=== PATIENT | male | born 1970 | race African-American/Black ===

== ENCOUNTER 2019-03-11 16:51 | Emergency (ER) | payer SELFPAY ==
--- NOTE | 2019-03-11 18:11 | RAD ---
RIGHT SHOULDER THREE VIEWS: HISTORY: Right shoulder pain after a fall. FINDINGS: There is a displaced fracture involving the proximal right humerus. The distal fracture fragment is m ildly impacted and slightly displaced medially by approximately 6 mm. There is mild apex lateral angu lation of the fracture fragments. Minimal adjacent increased density is seen, which could be related to callus type formation. There is mild elevation of the distal right clavicle in relation to the acr omion, which may be related to grade 2 acromioclavicular joint separation. The coracoclavicular dista nce is within normal limits. There is dislocation seen. IMPRESSION: 1. Mildly angulated and displaced fracture involving the proximal right humerus with areas of irregul ar increased density which may be related to callus formation. 2. Suggestion of minimal right acromioclavicular joint separation. POS: OFF
--- NOTE | 2019-03-11 18:14 | RAD ---
RIGHT HUMERUS TWO VIEWS: HISTORY: Right upper extremity pain after a fall. FINDINGS: There is a mildly fracture involving the proximal right humeral diaphysis, near the neck of the humerus, with distal fracture fragment displaced anteriorly and slightly medially with respect t o the patient proximal fracture fragment. There is also mild apex lateral angulation of fracture frag ments. Increased density is seen adjacent to the fracture site, which may be related to mild callus f ormation. The distal right clavicle appears to be slightly elevated, which may be related to grade 2 acromioclavicular joint separation. The coracoclavicular distance appears to be within normal limits. IMPRESSION: 1. , displaced and mildly angulated fracture involving the proximal right humerus with adjac ent minimal callus formation. 2. Probable mild right acromioclavicular joint separation. POS: OFF
== END 2019-03-11 19:44 | disposition home or self-care (01) ==
LOC: ERS 16:51
DX: S42.201A Unspecified fracture of upper end of right humerus, initial encounter for closed fracture (principal); F17.210 Nicotine dependence, cigarettes, uncomplicated; W07.XXXA Fall from chair, initial encounter

== ENCOUNTER 2021-08-24 00:50 | Emergency (ER) | payer OTHER, SELFPAY ==
[2021-08-24] MEDS ORDERED: Xylocaine 1% w/ Epi 1:100K 10 ML VIAL ONE (02:27)
[2021-08-24] MEDS ORDERED: Boostrix 0.5 ML (Tdap) VIAL ONE (02:57)
[2021-08-24] MEDS ORDERED: Triple Antibiotic Oint 1 GM Packet ONE (03:15)
== END 2021-08-24 03:21 | disposition home or self-care (01) ==
LOC: ERS 00:50
DX: S01.81XA Laceration without foreign body of other part of head, initial encounter (principal); F17.210 Nicotine dependence, cigarettes, uncomplicated; Y04.2XXA Assault by strike against or bumped into by another person, initial encounter; Z23 Encounter for immunization
CPT/HCPCS: 12013; 70450; 72125; 90471; 90715

== ENCOUNTER 2021-09-14 14:02 | Emergency (ER) | payer SELFPAY | END 2021-09-14 14:31 | disposition home or self-care (01) | LOC: ERS 14:02 | DX: S01.81XD Laceration without foreign body of other part of head, subsequent encounter (principal); F17.210 Nicotine dependence, cigarettes, uncomplicated ==

== ENCOUNTER 2022-03-05 01:16 | Inpatient (IN) | payer BC, SELFPAY ==
[2022-03-05 03:11] LABS: #Basophils 0.1 thou/uL (0.0-0.2); #Eosinphils 0.1 thou/uL (0.0-0.7); #Lymphocytes 2.8 thou/uL (1.20-3.40); #Monocytes 0.9 thou/uL (0.11-0.59); #Neutrophils 5.9 thou/uL (1.40-6.50); %Basophils 0.8 % (0.0-1.0); %Eosinophils 0.9 % (0.0-10.0); %Lymphocytes 28.2 % (21.0-51.0); %Monocytes 9.6 % (0.0-10.0); %Neutrophils 60.5 % (42.0-75.0); Hemoglobin 15.2 g/dL (14.0-18.0); Mean Corpuscular HGB CONC 33.1 g/dL (32.0-36.0); Mean Corpuscular Hemoglobin 34.3 pg (27.0-31.0); Mean Platelet Volume 7.4 fL (7.4-10.4); Platelet Count 208 10x3/uL (130-400); RBC Distribution Width 11.7 % (11.5-14.5); Red Blood Cell (RBC) Count 4.43 mill/uL (4.70-6.10); White Blood Cell (WBC) Count 9.8 10x3/uL (4.8-10.8)
[2022-03-05] MEDS ORDERED: Lidocaine 1% MPF 2 ML VIAL ONE (03:20)
[2022-03-05 03:31] LABS: Magnesium 1.7 mg/dL (1.6-2.6)
[2022-03-05 03:33] LABS: ALT (SGPT) 39 U/L (8-55); AST (SGOT) 48 U/L (5-34); Acetaminophen Less than 10.0 mcg/mL (10.0-30.0); Alcohol 173 mg/dL (Less than 10); Alkaline Phosphatase 161 U/L (40-110); Anion Gap 16 mmol/L (10-20); BUN (Urea Nitrogen) 10 mg/dL (8.4-25.7); Bilirubin, Total 0.3 mg/dL (0.2-1.2); Calc. Creatinine Clearance 0 mL/min (70-130); Calcium 9.6 mg/dL (7.8-10.44); Carbon Dioxide 27 mmol/L (22-29); Chloride 99 mmol/L (98-107); Estimated GFR 96; Globulin 5.4 g/dL (2.4-3.5); Glucose 87 mg/dL (70-105); Potassium 3.3 mmol/L (3.5-5.1); Protein, Total 9.4 g/dL (6.0-8.3); Salicylate Less than 8.0 mg/dL (15.0-30.0); Sodium 139 mmol/L (136-145)
[2022-03-05] MEDS ORDERED: cloNIDine 0.1 MG TAB ONE (05:13)
[2022-03-05] MEDS ORDERED: Potassium Chloride 20 MEQ TAB ONE (05:13)
[2022-03-05] MEDS ORDERED: Multivitamins, Adult 10 ML, Thiamine HCl 100 MG, Folic Acid 1 MG in Dextrose 5 %-0.45 %... IV SCH (05:30)
[2022-03-05] MEDS ORDERED: Lorazepam 2 MG/ML VIAL ONE (06:32)
[2022-03-05 06:45] LABS: Amphetamine Not Detected (NotDetected); Barbiturates Screen Not Detected (NotDetected); Benzodiazepine Screen Not Detected (NotDetected); Cocaine Metabolite Screen Not Detected (NotDetected); Methadone Not Detected (NotDetected); Methamphetamine Not Detected (NotDetected); Opiate Screen Not Detected (NotDetected); Oxycodone Screen Not Detected (NotDetected); Phencyclidine (PCP) Detected (NotDetected); THC/Cannabinoid Screen Not Detected (NotDetected); Tricyclic Screen Not Detected (NotDetected)
[2022-03-05] MEDS ORDERED: Ondansetron ODT 4 MG TAB SL PRN (07:30)
[2022-03-05] MEDS ORDERED: Ondansetron PF 4 MG/2 ML Vial IVP PRN (07:30)
[2022-03-05 08:02] LABS: Troponin I Less than 0.010 ng/mL (< 0.028)
[2022-03-05 09:30] LABS: SARS-CoV-2 NAA Rapid Test Not Detected (NotDetected)
[2022-03-05] MEDS ORDERED: Electrolyte Replacement Protocol 1 EACH FS SCH (10:15)
[2022-03-05] MEDS ORDERED: Electrolyte Replacement Protocol FS PRN (10:45)
[2022-03-05] MEDS ORDERED: Ondansetron ODT 4 MG TAB PO PRN (10:49)
[2022-03-05] MEDS ORDERED: Lorazepam 1 MG TAB PO PRN (10:49)
[2022-03-05 10:55] LABS: Troponin I Less than 0.010 ng/mL (< 0.028)
[2022-03-05 11:22] LABS: Magnesium 1.4 mg/dL (1.6-2.6)
[2022-03-05 11:23] LABS: CK (CPK) 274 U/L (30-200)
[2022-03-05 11:28] LABS: Bacteria/HPF None Seen HPF (None Seen); Bilirubin Negative (Negative); Blood, Urine Negative (Negative); CAUTI Indications for Culture Alt mental st,lethar; Clarity Clear (Clear); Glucose, Urine (Dipstick) Normal (Negative); Ketone, Urine Negative (Negative); Leukocyte Negative Leu/uL (Negative); Nitrite Negative (Negative); Protein, Urine (Dipstick) 10 mg/dL (Neg-Trace); RBC/HPF 0-3 HPF (0-3); Specific Gravity, Urine 1.007 (1.002-1.036); Squamous Epithelial None Seen HPF (0-3); Urobilinogen Normal mg/dL (Less than 2); WBC/HPF 0-3 HPF (0-3)
[2022-03-05 11:51] LABS: Urine Culture Reflex No No
[2022-03-05] MEDS ORDERED: Acetaminophen 650 MG Suppository PR PRN (11:51)
[2022-03-05] MEDS ORDERED: Acetaminophen 325 MG TAB ONE (12:14)
[2022-03-05] MEDS ORDERED: Lorazepam 1 MG TAB ONE (12:14)
[2022-03-05] MEDS: Lorazepam 1 MG TAB PO SCH ×3 (12:17→21:31)
[2022-03-05] MEDS: Acetaminophen 325 MG TAB PO PRN (12:17)
[2022-03-05] MEDS: Thiamine HCl 200 MG/2 ML VIAL SLOW IVP SCH (12:19)
[2022-03-05] MEDS ORDERED: Magnesium Sulfate In Water 4 GM in Premix Bag 1 BAG IVPB SCH (13:00)
[2022-03-05 13:57] VITALS: BMI 19.4
[2022-03-05] MEDS: Carvedilol 25 MG TAB PO SCH (16:08)
[2022-03-05] MEDS: Doxycycline 100 MG CAP PO SCH (21:31)
[2022-03-05] MEDS ORDERED: cloNIDine 0.1 MG TAB PO PRN (23:56)
[2022-03-06] MEDS: Acetaminophen 325 MG TAB PO PRN (00:11)
[2022-03-06] MEDS: Lorazepam 1 MG TAB PO SCH (04:42)
[2022-03-06 06:21] LABS: Anion Gap 11 mmol/L (10-20); BUN (Urea Nitrogen) 8 mg/dL (8.4-25.7); Calc. Creatinine Clearance 68 mL/min (70-130); Calcium 9.1 mg/dL (7.8-10.44); Carbon Dioxide 25 mmol/L (22-29); Chloride 100 mmol/L (98-107); Estimated GFR 91; Glucose 119 mg/dL (70-105); Magnesium 1.9 mg/dL (1.6-2.6); Potassium 3.6 mmol/L (3.5-5.1); Sodium 132 mmol/L (136-145)
[2022-03-06 06:48] LABS: Band 2 % (5-11); Eosinophils 3 % (0-10); Hemoglobin 14.7 g/dL (14.0-18.0); Lymphocytes 43 % (21-51); MDiff Complete? YES; Mean Corpuscular HGB CONC 33.7 g/dL (32.0-36.0); Mean Platelet Volume 7.3 fL (7.4-10.4); Monocytes 8 % (0-10); Neutrophil 44 % (42-75); Platelet Count 184 10x3/uL (130-400); RBC Distribution Width 11.5 % (11.5-14.5); Red Blood Cell (RBC) Count 4.19 mill/uL (4.70-6.10); White Blood Cell (WBC) Count 8.6 10x3/uL (4.8-10.8)
[2022-03-06] MEDS ORDERED: Magnesium 2 GM/50 ML(in water) 2 GM in Premix Bag 1 BAG IVPB SCH (08:00)
[2022-03-06] MEDS: Doxycycline 100 MG CAP PO SCH (08:45)
[2022-03-06] MEDS: Carvedilol 25 MG TAB PO SCH (08:45)
[2022-03-06] MEDS: Multivitamin W/ Minerals 1 TAB PO SCH (08:45)
[2022-03-06] MEDS: Folic Acid 1 MG TAB PO SCH (08:46)
[2022-03-06] MEDS ORDERED: FLU VACC QS2022-23(6MOS UP)/PF 60 MCG/0.5 ML SYRINGE IM ONE (09:00)
[2022-03-06] MEDS ORDERED: Lorazepam 1 MG TAB PO PRN (10:49)
[2022-03-06] MEDS ORDERED: Lactated Ringer's 1,000 ML IV SCH (12:00)
[2022-03-06] MEDS: Thiamine HCl 200 MG/2 ML VIAL SLOW IVP SCH (12:23)
[2022-03-06] MEDS ORDERED: Piperacillin/Tazobactam 3.375 GM in Sodium Chloride 0.9% 100 ML IVPB SCH (13:30)
[2022-03-06] MEDS: Piperacillin/Tazobactam 3.375 GM in Sodium Chloride 0.9% 100 ML IVPB SCH (17:46)
[2022-03-06] MEDS: Heparin 5,000 UNITS/ML VIAL SC SCH (20:50)
[2022-03-06] MEDS: Cyanocobalamin (Vitamin B-12) 1,000 MCG TAB PO SCH (20:50)
[2022-03-06] MEDS ORDERED: Amoxicillin/Potassium Clav 875 MG TAB PO SCH (21:00)
[2022-03-07] MEDS: Piperacillin/Tazobactam 3.375 GM in Sodium Chloride 0.9% 100 ML IVPB SCH ×3 (02:03→17:01)
[2022-03-07 05:49] LABS: ALT (SGPT) 21 U/L (8-55); AST (SGOT) 24 U/L (5-34); Albumin 3.3 g/dL (3.5-5.0); Alkaline Phosphatase 107 U/L (40-110); Anion Gap 12 mmol/L (10-20); BUN (Urea Nitrogen) 7 mg/dL (8.4-25.7); Bilirubin, Total 0.8 mg/dL (0.2-1.2); Calc. Creatinine Clearance 72 mL/min (70-130); Carbon Dioxide 27 mmol/L (22-29); Chloride 99 mmol/L (98-107); Estimated GFR 98; Globulin 4.7 g/dL (2.4-3.5); Glucose 118 mg/dL (70-105); Magnesium 1.6 mg/dL (1.6-2.6); Potassium 3.5 mmol/L (3.5-5.1); Sodium 134 mmol/L (136-145)
[2022-03-07 06:02] LABS: Band 2 % (5-11); Eosinophils 1 % (0-10); Hemoglobin 13.9 g/dL (14.0-18.0); Lymphocytes 41 % (21-51); MDiff Complete? YES; Mean Corpuscular HGB CONC 33.7 g/dL (32.0-36.0); Mean Corpuscular Hemoglobin 34.7 pg (27.0-31.0); Mean Platelet Volume 7.3 fL (7.4-10.4); Monocytes 17 % (0-10); Neutrophil 39 % (42-75); Platelet Count 176 10x3/uL (130-400); RBC Distribution Width 11.4 % (11.5-14.5); Red Blood Cell (RBC) Count 3.99 mill/uL (4.70-6.10); White Blood Cell (WBC) Count 6.6 10x3/uL (4.8-10.8)
[2022-03-07] MEDS ORDERED: Potassium Chloride 20 MEQ TAB PO SCH (09:00)
[2022-03-07] MEDS ORDERED: Magnesium 2 GM/50 ML(in water) 2 GM in Premix Bag 1 BAG IVPB SCH (09:00)
[2022-03-07] MEDS ORDERED: Iopamidol-370 76% 500 ML 1 ML ONE (09:05)
[2022-03-07] MEDS: Folic Acid 1 MG TAB PO SCH (10:15)
[2022-03-07] MEDS: Metoprolol Tartrate 25 MG TAB PO SCH ×2 (10:15→21:36)
[2022-03-07] MEDS: Multivitamin W/ Minerals 1 TAB PO SCH (10:16)
[2022-03-07] MEDS: NIFEdipine XL 30 MG TAB PO SCH (10:16)
[2022-03-07] MEDS ORDERED: Lorazepam 1 MG TAB PO PRN (10:49)
[2022-03-07] MEDS ORDERED: Lorazepam 0.5 MG TAB PO SCH (11:00)
[2022-03-07] MEDS: Heparin 5,000 UNITS/ML VIAL SC SCH ×2 (11:38→21:36)
[2022-03-07] MEDS: Thiamine HCl 200 MG/2 ML VIAL SLOW IVP SCH (16:54)
[2022-03-07] MEDS: Cyanocobalamin (Vitamin B-12) 1,000 MCG TAB PO SCH (21:36)
[2022-03-08] MEDS: Piperacillin/Tazobactam 3.375 GM in Sodium Chloride 0.9% 100 ML IVPB SCH (01:53)
[2022-03-08 06:03] LABS: Magnesium 1.5 mg/dL (1.6-2.6); Phosphorus 4.7 mg/dL (2.3-4.7)
[2022-03-08] MEDS ORDERED: Magnesium 2 GM/50 ML(in water) 2 GM in Premix Bag 1 BAG IVPB SCH (08:00)
[2022-03-08] MEDS ORDERED: Amoxicillin/Potassium Clav 875 MG TAB PO SCH (09:00)
[2022-03-08] MEDS ORDERED: Thiamine 100 MG TAB PO SCH (09:00)
[2022-03-08] MEDS: Folic Acid 1 MG TAB PO SCH (09:56)
[2022-03-08] MEDS: Metoprolol Tartrate 25 MG TAB PO SCH (09:57)
[2022-03-08] MEDS: Heparin 5,000 UNITS/ML VIAL SC SCH (09:57)
[2022-03-08] MEDS: Multivitamin W/ Minerals 1 TAB PO SCH (09:57)
[2022-03-08] MEDS: NIFEdipine XL 30 MG TAB PO SCH (09:58)
[2022-03-08] MEDS ORDERED: Lorazepam 0.5 MG TAB PO PRN (10:49)
[2022-03-08 12:20] VITALS: BP 149/97; TEMP 97.7
== END 2022-03-08 14:22 | disposition home or self-care (01) | DRG 917 ==
LOC: ERS 01:16 → ERHOLD 07:06 → 2SW 13:48 → OBSVTOIN 03-06 11:30
PROVIDERS: ADMIT Internal Medicine; ATTEND Internal Medicine
PROC: HZ2ZZZZ Detoxification Services for Substance Abuse Treatment (ICD-10-PCS; principal; 2022-03-06)
DX: T51.0X1A Toxic effect of ethanol, accidental (unintentional), initial encounter (principal); G92.8 Other toxic encephalopathy; E87.1 Hypo-osmolality and hyponatremia; F16.10 Hallucinogen abuse, uncomplicated; I10 Essential (primary) hypertension; F17.210 Nicotine dependence, cigarettes, uncomplicated; Z20.822 Contact with and (suspected) exposure to COVID-19; I16.0 Hypertensive urgency; Y90.6 Blood alcohol level of 120-199 mg/100 ml; E87.6 Hypokalemia; E83.42 Hypomagnesemia; K05.219 Aggressive periodontitis, localized, unspecified severity; F10.229 Alcohol dependence with intoxication, unspecified; Z79.899 Other long term (current) drug therapy; Z90.49 Acquired absence of other specified parts of digestive tract; S01.511A Laceration without foreign body of lip, initial encounter; W19.XXXA Unspecified fall, initial encounter
CPT/HCPCS: 36415; 70450; 70486; 71045; 71260; 72125; 80048; 80053; 80306; 80307; 81001; 82550; 83605; 83735; 84100; 84443; 84484; 85025; 86140; 87040; 93005; 96375; 97139; G0378; J1644; J2060; J2543; J3411; J3475; J3490; J7042; J7120; Q9967